=== PATIENT | male | born 1990 | race Two or more races ===

== ENCOUNTER 2017-06-22 03:07 | Emergency (ER) | payer SELFPAY ==
[~2017-06-22] VITALS: Ht 170.2 cm; Wt 83.5 kg
[2017-06-22 03:21] VITALS: BP 154/97
--- NOTE | 2017-06-22 20:59 | ED.ADGEN ---
Past Medical History Past Medical History: No Pertinent History Past Surgical History: No Surgical History Alcohol Use: None Drug Use: None Adult General Chief Complaint Chief Complaint: THUMB HPI HPI Patient is a 27 year old right handed male who presents with left thumbnail injury. Patient struck his left thumbnail with a crowbar earlier this afternoon and has a subungual hematoma. He reports pain and pressure to the thumbnail region. There is no laceration deformity or active bleeding. No other complaints. Review of Systems Review of Systems ROS as per HPI. Allergies Allergies Allergies Coded Allergies Type Severity Reaction Last Updated Verified No Known Drug Allergies 06/22/17 No Physical Exam Physical Exam Constitutional: Well developed, well nourished, no acute distress, non-toxic appearance. [] Extremities: Left thumb subungual hematoma over proximal nailbed without forming , laceration or disruption of nail. Current Patient Data Vital Signs Vital Signs Date Time Temp Pulse Resp B/P (MAP) Pulse Ox O2 Delivery O2 Flow Rate FiO2 06/22/17 03:21 98.1 81 20 154/97 (116) 96 Room Air 98.1 EKG EKG [] Radiology/Procedures Radiology/Procedures [] Course & Med Decision Making Course & Med Decision Making Pertinent Labs and Imaging studies reviewed. (See chart for details) [A portable electric cautery device to use to estimate the nail which relieved pressure underneath the nail. Patient instructed to keep area clean and dry. Return precautions reviewed. Dragon Disclaimer Dragon Disclaimer This electronic medical record was generated, in whole or in part, using a voice recognition dictation system. GRETA MCQUEEN DO Jun 22, 2017 20:59
== END 2017-06-22 04:34 | disposition home or self-care (01) ==
LOC: ER 03:07
DX: S60.112A Contusion of left thumb with damage to nail, initial encounter (principal); M79.645 Pain in left finger(s); W22.8XXA Striking against or struck by other objects, initial encounter; Y93.89 Activity, other specified; Y92.89 Other specified places as the place of occurrence of the external cause; Y99.8 Other external cause status
CPT/HCPCS: 99282